=== PATIENT | male | born 1965 | race Caucasian/White ===

== ENCOUNTER 2016-10-15 05:15 | Inpatient (IN) | payer BC ==
[2016-10-14 16:40] LABS: BASOPHILS 1.2 % (0.0-2.0); EOSINOPHILS 2.7 % (0-7); HEMOGLOBIN 10.9 g/dL (13.5-17.5); IMMATURE GRANULOCYTES 0.2 % (0-5); LYMPHOCYTES 33.7 % (15-50); MCH 22.7 pg (26.0-34.0); MCHC 30.3 g/dL (31.0-37.0); MCV 74.8 fL (80.0-100.0); MONOCYTES 7.7 % (2-11); NEUTROPHILS 54.5 % (40-80); PLATELET COUNT 238 10x3/uL (130-400); RBC 4.81 10x6/uL (4.20-6.10)
[2016-10-14 17:06] LABS: APPEARANCE CLEAR (CLEAR); BILIRUBIN NEGATIVE (NEGATIVE); COLOR YELLOW (YELLOW); GLUCOSE NEGATIVE (NEGATIVE); KETONE NEGATIVE (NEGATIVE); LEUKOCYTE ESTERASE NEGATIVE (NEGATIVE); NITRITE NEGATIVE (NEGATIVE); PROTEIN NEGATIVE (NEGATIVE); UROBILINOGEN NORMAL (NORMAL)
[2016-10-14 17:21] LABS: CALC OSMOLALITY 289 mosm/kg (275-300); CALCIUM 8.8 mg/dL (8.5-10.1); CARBON DIOXIDE 30.6 mmol/L (21.0-32.0); CHLORIDE - SERUM 106 mmol/L (98-107); CREATININE - SERUM 0.9 mg/dL (0.6-1.3); POTASSIUM - SERUM 3.8 mmol/L (3.5-5.1); SODIUM 144 mmol/L (136-145); UREA NITROGEN 25 mg/dL (7-18); eGFR NON AFRICAN AMERICAN > 90 mL/min (90-120)
[2016-10-14 17:25] LABS: GLUCOSE 89 mg/dL (74-106)
[2016-10-15] VITALS (18 sets, daily range): BP systolic 128–192; BP diastolic 84–119; Ht 177.8 cm; Wt 95.0 kg
[~2016-10-15] VITALS: Ht 177.8 cm; Wt 95.0 kg
--- NOTE | ~2016-10-15 | CN ---
PATIENT NAME:CALLIE LANGE MEDICAL RECORD: [id number] : 63 LOCATION:D.MS [facility]20 ADMIT DATE: 10/15/16 ACCOUNT: [id number] CONSULTING PHYSICIAN: THOMAS POOLE MD REFERRING PHYSICIAN: LUCI BLUM MD DATE OF CONSULTATION: 10/15/2016 REASON FOR CONSULTATION: Hypertension, postoperative. HISTORY OF PRESENT ILLNESS: The patient is a 50-year-old male, who today underwent a left C5-C6 cervical disc allograft and left shoulder arthroscopy with clavicle and acromion shaving and rotator repair. Apparently during surgery, anesthesia had to change his blood pressure with medications because of elevated blood pressure. The patient states he had taken his Lopressor this morning and did not feel hypertensive. Postoperatively, his blood pressure has been up to 160/108 range with a heart rate of 128. He is somewhat anxious, said that his shoulder is pain free as he has a blocking currently. He said his neck pain was 1/10 preop, it is now 2/10. PAST MEDICAL HISTORY: Had normal cardiac catheterization in December of 2015 with an episode of tachycardia and hypertension at which point he was placed on Lopressor, history of dyslipidemia, history of obesity, exogenous type, history of depression. PAST SURGICAL HISTORY: Gastric sleeve resection in 2009 with a 100-pound weight loss. Recent left cervical disc allograft and left shoulder repair. HOME MEDICATIONS: Nexium 40 mg a day, Klonopin 1 mg p.o. b.i.d., pravastatin 20 mg at h.s., levothyroxine 25 mcg p.o. q.a.m., Lamictal 200 mg once a day, and Lopressor 50 mg p.o. q.a.m. FAMILY HISTORY: Father with history of DVT with some cardiac disease and diabetes. Mother with history of schizophrenia. Sister with bipolar illness. SOCIAL HISTORY: Nonsmoker. Occasional alcohol, socially. REVIEW OF SYSTEMS: GENERAL: No recent fever, fatigue, or weight change. HEENT: No recent visual change, sinus congestion, or sore throat. He does wear glasses to read. CARDIAC: No chest pain, palpitations, had negative catheterization in December of last year. No history of LVH. RESPIRATORY: No severe cough. GASTROINTESTINAL: No nausea, vomiting, change in stools or blood per rectum. He does have intermittent dyspepsia after his gastric sleeve, responds well to Nexium. Denies constipation, change in stools. GENITOURINARY: Denies nocturia or dysuria. MUSCULOSKELETAL: Currently, has no left shoulder pain due to anesthesia, has 2/10 pain in the cervical spine. Has lumbar radiculopathy into his right shoulder at this time as well. INTEGUMENT: No rash or itching. PSYCHIATRIC: Admits to has some anxiety, but depression has been better ____ and he has been sleeping better with medication. ENDOCRINE: Denies polyuria, polydipsia, heat or cold intolerance. CONSULT REPORT [id number] CALLIE LANGE PHYSICAL EXAMINATION: VITAL SIGNS: Heart rate is 98 and regular, blood pressure is 155/108, sat of 96%. He is afebrile, reportedly had a low-grade fever earlier of 99.4 and maximum blood pressure was 173/111, with a heart rate 128. GENERAL: Somewhat anxious, but alert. HEENT: Eyes are clear. NECK: He has postoperative dressing with soft ____ collar. CHEST: Clear. HEART: Tachycardic without murmur. ABDOMEN: Soft. GENITOURINARY: Deferred. EXTREMITIES: No CC&E. Shoulders postoperative wound dressing with anesthesia blocking currently. NEUROLOGICAL: Oriented times 3. Cranial nerves grossly intact. Gait not tested. LABORATORY DATA: Preoperative lab from October 14 shows an H&H of 10.9 and 36.0, MCV of 74.8, platelet count of 238, 0000. Chemistries showed potassium 3.8, BUN and creatinine 25 and 0.9. Urinalysis is clear. Chest x-ray showed no acute cardiopulmonary disease. EKG shows ____ Q-wave unchanged from prior. ASSESSMENT: Essential hypertension with postoperative blood pressure elevation, tachycardia, anxiety, cervical disc disease, left rotator cuff tear and repair, history of depression, history of left ventricular hypertrophy. PLAN: The patient was given an extra dose of metoprolol and his heart rate has improved in the low 90s. He appears somewhat anxious. We will give emma Hernandez for that tonight and monitor closely. TRANSINT:[id number] Voice Confirmation ID: [id number] DOCUMENT ID: [id number] THOMAS POOLE MD CC: [id number] DICTATION DATE: 10/15/162107 STRETCH BOX TENDER: 10/16/16137 ADM IN [facility] [address] [place] [address]
[~2016-10-15 05:15] MED LIST: KLONOPIN1 MG PO; LEVOXYL25 MCG PO; METOPROLOL TART50 MG PO; NEXIUM40 MG PO
--- NOTE | 2016-10-15 09:48 | NUR ---
[id number]: SHOULDER STOPED AT 0839, PT MOVED TO STRETCHER, BED CHANGED AND BOBBY BAG REMOVED PT RETURNED TO OR TABLE. ROOM CLEANED AND SET UP FOR ACF PROCEDURE WITH DR BLUM.
--- NOTE | 2016-10-15 12:00 | NUR ---
TO ROOM 2220 FROM PACU VIA BED.WITHOUT DISTRESS.PAIN 4/10 TO NECK AND SHOULDER.VSS STABLE SEE GRAPHICS. ASSESSMEN TPER FLOW SHEET.DRESSING TO LEFT SHOULDER AND NECK CDI.CALL LIGHT IN REACH.
--- NOTE | 2016-10-15 12:45 | NUR ---
PAIN MEDS ORDERED PER SEP.SCD'S PLACED ON PT.IS AT BEDSIDE IINSTRUCTED USE.
--- NOTE | 2016-10-15 15:00 | NUR ---
PAINMEDS ORDERED.UP TO BATHROOM AND THEN TO CHAIR.MONITOR FOR NEEDS.
--- NOTE | 2016-10-15 15:15 | NUR ---
BP BEFORE PAIN MEDS ELEVATED 166/106.AFTER PAIN MEDS 148/99.
--- NOTE | 2016-10-15 15:15 | NUR ---
PAIN MEDS ORDERED PER MAR
--- NOTE | 2016-10-15 17:35 | NUR ---
REMAINS UP IN CHAIR,WITHOUT DISTRESS.PAINMEDS PER MAR.CALL LIGHT IN REACH
--- NOTE | 2016-10-15 17:40 | OP ---
PATIENT NAME: CALLIE LANGE MEDICAL RECORD: [id number] :63 LOCATION:D.MS [facility]20 ADMISSION DATE:10/15/16 SURGEON: LUCI TURCIOS MD DATE OF OPERATION: 10/15/2016 Orthopedic Surgery Operative note PREOPERATIVE DIAGNOSES: 1. Impingement syndrome of the left shoulder. 2. Acromioclavicular arthritis of the left shoulder. POSTOPERATIVE DIAGNOSES: 1. Impingement syndrome of the left shoulder. 2. Acromioclavicular arthritis of the left shoulder. PROCEDURE: 1. Left shoulder arthroscopy with arthroscopic distal clavicle excision. 2. Arthroscopic subacromial decompression. SURGEON: Luci Turcios MD ANESTHESIA: General. INTRAOPERATIVE COMPLICATIONS: None. SUMMARY OF PATHOLOGIC FINDINGS: Intraarticular aspect of the shoulder was relatively pristine with the exception of a small amount of biceps tendinitis. The patient had a downward sloping acromion with a thickened and attenuated coracoacromial ligament. The superior aspect of the rotator cuff had mild attritional changes, but no full thickness tearing was noted. The AC joint had substantial grade IV chondromalacia with a large osteophytic spur. OPERATIVE SUMMARY IN DETAIL: After obtaining the appropriate preoperative orthopedic surgery consents as well as anesthetic consultation, evaluation and clearance, the patient was brought to the operating room and placed on the operating table in supine position. After adequate general laryngeal mask was administered, the patient was placed in a right lateral decubitus position. All pressure points were well padded to include down leg peroneal pad as well as axillary roll. The patient was held firmly to the operating room table using the vacuum pack suction system. Left upper extremity and shoulder were then prepped and draped in a routine sterile fashion. The arm was held in the Arthrex traction boom at 30 degrees of forward flexion, 30 degrees of abduction with 10 pounds of traction laterally. Arthroscopy was established in the glenohumeral joint from a posterior portal. Anterior portal was established in the anterior safe interval. Diagnostic arthroscopy did reveal the above findings. Attention was then turned to the subacromial space. While on the subacromial space, accessory lateral portal was created through which [place] tissue ablation system was utilized to denude the undersurface of the acromion of all soft tissue elements and released coracoacromial ligament. A 5-0 barrel bur was used to perform acromioplasty at the level of acromioclavicular joint. Having completed this, through a separate arthroscopic anterior portal under direct arthroscopic visualization, 1 cm of distal clavicle was excised. Further bursal tissue was taken down anteriorly, laterally, posteriorly and superficially to complete the decompression. Having completed this, arthroscopy portals were closed in routine interrupted fashion using 4-0 Prolene. Sterile OPERATIVE REPORT [id number] BREVING,CALLIE dressings were applied. The patient was awakened and taken to recovery room in stable condition. All final needle and sponge counts were correct. TRANSINT:[id number] Voice Confirmation ID: [id number] DOCUMENT ID: [id number] KAROLINA PATHAK, LUCI POLO at 1740 CC: [id number] DICTATION DATE: 10/15/1640 MATERIALS INSPECTOR: 10/15/16 1037 ADM IN [facility] [address] [id number]
--- NOTE | 2016-10-15 19:00 | NUR ---
BEDSIDE REPORT RECEIVED AND CARE OF PT ASSUMED. PT LYING IN HIGH ROSALES'S POSITION. LEFT ARM IN IMMOBILIZER. DRESSING ON LEFT SHOULDER AND RIGHT NECK CLEAN AND DRY. SOFT COLLAR ON NECK. IV IN RIGHT FA PATENT WITH D5 1/2 NS INFUSING AT 50 ML / HR. BLOCK IN USE ON LEFT SHOULDER AND BUTOTN WITHIN REACH OF PT. BLOOD PRESSURE 168/109 AT THIS ASSESSMENT.
--- NOTE | 2016-10-15 19:55 | NUR ---
BLOOD PRESSURE REMAINS ELEVATED AT 173/111. CALLED DR POOLE AND RECEIVED ORDERS FOR TOPROL 50 MG PO NOW AND PROTONIX 40 MG IVP Q 24 HOURS FOR REFLUX.
--- NOTE | 2016-10-15 21:09 | NUR ---
DR POOLE HERE ROUNDING ON PT. BLOOD PRESSURE AT THIS CHECK 139/91 AFTER RECEIVING ONE TIME TOPROL 50 MG.
--- NOTE | 2016-10-15 21:35 | NUR ---
SPO2 91% ON ROOM AIR. PLACED O2 @2L VIA NC...O2 SAT UP TO 94%. WILL MONITOR ALYSA.
--- NOTE | 2016-10-15 23:45 | NUR ---
PT RESTING QUIETLY IN SEMI ROSALES'S POSITION WITH EYES CLOSED. SPO2 94% ON 2L O2. FAMILY MEMBER IS AT BEDSIDE.
--- NOTE | 2016-10-16 01:27 | NUR ---
PT REQUESTING NORCO X2 AND ROBAXIN FOR PAIN AT LEVEL 5/10...GIVEN PER PRN ORDER. WILL MONITOR FOR EFFECTIVENES. SIDE RAILS UP X2 FOR SAFETY. SCD'S IN USE ON BLE.
[2016-10-16 06:09] LABS: BASOPHILS 0.2 % (0.0-2.0); EOSINOPHILS 0 % (0-7); HEMATOCRIT 34.7 % (42.0-54.0); HEMOGLOBIN 10.5 g/dL (13.5-17.5); IMMATURE GRANULOCYTES 0.1 % (0-5); LYMPHOCYTES 18.6 % (15-50); MCH 22.6 pg (26.0-34.0); MCHC 30.3 g/dL (31.0-37.0); MCV 74.8 fL (80.0-100.0); NEUTROPHILS 72.1 % (40-80); PLATELET COUNT 221 10x3/uL (130-400); RBC 4.64 10x6/uL (4.20-6.10); RDW 16.2 % (11.5-14.5)
[2016-10-16 06:25] LABS: WBC 8.4 10x3/uL (4.8-10.8)
[2016-10-16 06:26] LABS: % SATURATION 5 % (15-55); IRON 25 ug/dl (35-150); TOTAL IRON BIND CAPACITY 461 ug/dl (260-445); UNSAT IRON BIND CAPACITY 436 ug/dl (150-375)
[2016-10-16 06:46] LABS: CALC OSMOLALITY 284 mosm/kg (275-300); CALCIUM 8.1 mg/dL (8.5-10.1); CARBON DIOXIDE 24.5 mmol/L (21.0-32.0); CHLORIDE - SERUM 107 mmol/L (98-107); FERRITIN 7 ng/mL (3-244); GLUCOSE 116 mg/dL (74-106); POTASSIUM - SERUM 3.7 mmol/L (3.5-5.1); SODIUM 142 mmol/L (136-145); T4 THYROXIN - FREE 1.67 ng/dL (0.76-1.46); THYROID STIMULATING HORMONE 0.28 uIU/mL (0.36-3.74); eGFR NON AFRICAN AMERICAN 84 mL/min (90-120)
[2016-10-16 06:49] LABS: UREA NITROGEN 15 mg/dL (7-18)
[2016-10-16 08:04] VITALS: BP 157/106
[2016-10-16] MEDS ORDERED: ROBAXIN-750750 MG PO (08:17)
[2016-10-16] MEDS ORDERED: HYDROCODONE-APA1 TAB PO (08:19)
--- NOTE | 2016-10-16 08:21 | NUR ---
PT SEEN AND ASSESSED. NO COMPLAINTS AT PRESENT EXCEPT FOR NUMBNESS TO LEFT ARM AND SHOULDER. DRESSING CLEAN DRY AND INTACT. BLOCK IN PLACE FOR PAIN CONTROL. SOFT COLLAR ON-REMOVED TO INSPECT DRESSING TO RIGHT SIDE OF NECK-CLEAN DRY AND INTACT WITH NO DRAINAGE NOTED. NO COMPLAINTS OF DIFFICULTY SWALLOWING OR FEELING A LUMP IN THROAT. CALL LIGHT IN REACH. FAMILY AT BEDSIDE. UP IN CHAIR AT PRESENT
[2016-10-16] MEDS ORDERED: NORVASC2.5 MG PO (08:43)
[2016-10-16] MEDS ORDERED: CATAPRES0.1 MG PO (08:44)
--- NOTE | 2016-10-19 12:27 | OP ---
PATIENT NAME: CALLIE LANGE MEDICAL RECORD: [id number] :63 LOCATION:D.MS [facility]20 ADMISSION DATE:10/15/16 SURGEON: LUCI MULLER MD DATE OF OPERATION: 10/15/2016 DIAGNOSIS: Cervical C5-C6 nerve root compression secondary to cervical spondylosis. PROCEDURE: 1. Anterior cervical discectomy and decompression of canal and nerve root. 2. Application of Mobi-C cervical disc prosthesis. SURGEON: Luci Muller MD WELCOME WAGON HOST/HOSTESS: Eugenio Mcclure MD ESTIMATED BLOOD LOSS: 20 cc. SUMMARY: The patient was taken to the operating room and after an adequate level of general anesthetic, was prepped and draped in the usual aseptic manner in a supine position with the right side of the neck. An incision was made in the skin line after infiltrating with 1:400,000 of epinephrine and 0.5% lidocaine. Dissection was carried out down to the longus colli muscles. Cloward self-retaining retractors was used to maintain exposure. A spinal needle was placed in the C5-C6 interspace. The C-arm image was made to confirm this. Following this, an annulus and anterior longitudinal ligament at C5-C6 were excised with a 15 blade. Disc material was removed piecemeal. A curette was used to further remove disc material from the interspace. A 3 mm Rowena drill bit was then used to drill off osteophytes located posteriorly and in the neural foramen. The posterior longitudinal ligament was maintained and not removed. After a thorough decompression was carried out in the neural foramina, the Mobi-C trial was used to determine that a 17 wide x 15 prosthesis would best fit the patient's interspace using C-arm fluoroscopic images in the operating room to determine this distraction posts were placed in the C5 and C6 vertebral body prior to using the trial and in order to achieve a good decompression. The disc prosthesis was then selected by the company retail sales representative and then inserted into the disc space and the C-arm fluoroscope was observed during this process to be sure that the disk prosthesis was positioned properly in the interspace. When the positioning was determined to be perfect, the distracting posts were compressed on the disc and a little time was allowed for the disc to settle in ____ position in the C5-C6 disc space. Following this, the wound was irrigated with antibiotic solution. Hemostasis was assured and the closure carried out with 3-0 Dexon on the platysma with a subcuticular stitch, a 4-0 Dexon on the skin. The patient tolerated the procedure well, was taken to recovery in stable condition. Sensory evoked responses monitored throughout the procedure were maintained normal. TRANSINT:[id number] Voice Confirmation ID: [id number] DOCUMENT ID: [id number] OPERATIVE REPORT [id number] CALLIE LANGE JAMES MD at 1227 CC: [id number] DICTATION DATE: 10/15/16 1108 TRACK MAN: 10/15/16 1244 DIS IN 10/16/16 [facility] [address] [place] [address]
--- NOTE | 2016-10-19 12:28 | HP ---
PATIENT: CALLIE LANGE MEDICAL RECORD: [id number] ACCOUNT: [id number] LOCATION:D.MS [facility]2220 : 63 ADMISSION DATE: 10/15/16 HISTORY AND PHYSICAL EXAMINATION CHIEF COMPLAINT: Neck pain and shoulder pain. 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 He has known rotator cuff issues along with C5-C6 left neural foraminal narrowing. He is beginning to experience weakness in his left arm along with some tremors. He was seen by Dr. Muller and surgery has been scheduled. PAST MEDICAL HISTORY: Significant for left shoulder impingement and he has also had gastric bypass surgery. He also has reflux. FAMILY HISTORY: His father at the age of 74 from congestive heart failure. His mother's health is unknown. SOCIAL HISTORY: He is . He has a significant other. FAMILY DOCTORS: Dr. Lynn and Dr. Herberth Alvarado. ALLERGIES: None. CURRENT MEDICATIONS: Metoprolol, Nexium, clonazepam and Synthroid. REVIEW OF SYSTEMS: He denies any recent chest pain. He has had significant weight loss secondary to surgery. No chest pain or shortness of breath. PHYSICAL EXAMINATION: GENERAL: This is an alert, oriented male in no acute distress. HEENT: Normocephalic. Pupils are equal, reactive to light. CHEST: Clear bilaterally to auscultation. HEART: S1 and S2. ABDOMEN: Soft, bowel sounds present. EXTREMITIES: He has strength 2/5 of his left tricep and he has decreased sensation in his left thumb. He has no biceps reflex. IMPRESSION: C5-C6 degenerative disc disease with foraminal narrowing. PLAN: C5-C6 LDR disc replacement with ____. He will have rotator cuff surgery per Dr. Herberth Alvarado. The risk and benefits of surgery regarding his artificial disc have been explained in great detail. Risks include bleeding, failure to relieve symptoms, problems with anesthesia and . Time was allowed for questions, questions were answered. The patient wishes to proceed with surgery. TRANSINT:[id number] Voice Confirmation ID: [id number] DOCUMENT ID: [id number] Dictated By: SILVANO BLANCHARD I have interviewed/examined the above patient and agree with these documented findings. HISTORY AND PHYSICAL [id number] CALLIE LANGE JAMES MD at 1228 CC: [id number] DICTATION DATE: 10/14/16 1634 ECOLOGIST TECHNICIAN: 10/14/16 1823 DIS IN 10/16/16 [facility] [address] [id number]
== END 2016-10-16 09:47 | disposition home or self-care (01) | DRG 518 ==
LOC: D.SDCHOLD 05:15 → D.MS 05:15 → D.SDCHOLD 07:30 → D.MS 11:38
PROVIDERS: Family Medicine; Orthopaedic Surgery; ADMIT Neurological Surgery
PROC: 0RNK4ZZ Release Left Shoulder Joint, Percutaneous Endoscopic Approach (ICD-10-PCS; principal; 2016-10-15 07:30)
PROC: 0RR30JZ Replacement of Cervical Vertebral Disc with Synthetic Substitute, Open Approach (ICD-10-PCS; 2016-10-15 07:30)
PROC: 0PBB4ZZ Excision of Left Clavicle, Percutaneous Endoscopic Approach (ICD-10-PCS; 2016-10-15 07:30)
DX: M50.30 Other cervical disc degeneration, unspecified cervical region (principal); I97.3 Postprocedural hypertension; R00.0 Tachycardia, unspecified; M75.42 Impingement syndrome of left shoulder; M19.012 Primary osteoarthritis, left shoulder; M25.78 Osteophyte, vertebrae; M47.812 Spondylosis without myelopathy or radiculopathy, cervical region; F41.9 Anxiety disorder, unspecified; E78.5 Hyperlipidemia, unspecified

== ENCOUNTER → 2016-11-02 10:54 | Outpatient (CLI) | payer BC ==
--- NOTE | ~2016-11-02 | EC ---
PATIENT:CALLIE LANGE DATE OF SERVICE: 11/02/16 SEX: M MEDICAL RECORD: [id number] DATE OF : 63 LOCATION:D.PR AGE OF PATIENT: 50 ADMISSION DATE: 11/02/16 REFERRING PHYSICIAN: INTERPRETING PHYSICIAN: THOMAS MAY M.D. ECHOCARDIOGRAM REPORT ECHO CHARGES 4 ECHO COMPLETE CLINICAL DIAGNOSIS: SOB/EDEMA/HTN/LVH ECHOCARDIOGRAPHIC MEASUREMENTS (adult normal given) AC root (d.<3.7cm) 3.6 LV Septum d (<1.2 cm> 1.7 Valve Excursion 2.5 LV Septum (systole) 2.4 Left Atria (s.<4.0cm> 5.0 LVPW d(<1.2cm) 1.5 RV (d.<2.3cm) 2.9 LVPW (sytole) 2.2 LV diastole(<5.6CM) 4.9 MV E-F(>70mm/sec) LV systole 2.7 LVOT Diameter 2.3 MV exc.(>10mm) Est.ejection fraction (50-75%) Pericardial Effusion N DOPPLER: LVIT A 83.0 E 64.0 LA RVSP 43.3 LVOT 122 AOP1/2T Asc. Ao 147 RVOT 960 RA PA 123 AV Gradient Peak 8.7 AV Mean 3.7 AV Area 3.4 MV Gradient Peak 4.0 MV Mean 1.8 MV Area COMMENTS: Vice President Mission Integration: Lisa CERNAOE Tool Grinding Machine Operator:Laure May TAPE# PACS DATE OF SERVICE: 11/02/2016 Echocardiogram Report INDICATION: Hypertension, edema. DESCRIPTION: Left ventricle demonstrates left ventricular hypertrophy. No regional wall motion abnormalities are noted. Estimated ejection fraction is in the order of 55% to 60%. Mitral valve is structurally normal. There is mild regurgitation noted. Left ECHOCARDIOGRAM REPORT [id number] CALLIE LANGE atrium is mildly dilated. The aortic valve is trileaflet. There is trivial insufficiency seen, but no evidence of stenosis. Right ventricle is mildly dilated. Tricuspid valve is structurally normal. There is trivial regurgitation seen. Right atrium is normal in size. There is no pericardial effusion noted. IMPRESSION: 1. Left ventricular hypertrophy with preserved ejection fraction of 60%. 2. Mild mitral regurgitation. 3. Trivial aortic insufficiency. 4. Trivial tricuspid regurgitation. 5. Right ventricular systolic pressure is elevated at 43 mmHg. TRANSINT:[id number] Voice Confirmation ID: [id number] DOCUMENT ID: [id number] THOMAS MAY M.D. CC: [id number] DICTATION DATE: 11/02/16 1542 ELECTRICAL MAINTENANCE ENGINEER: 11/02/16 2330 [facility] [address] [id number]
[~2016-11-02 10:54] MED LIST changes: +CATAPRES0.1 MG PO; +HYDROCODONE-APA1 TAB PO; +NORVASC2.5 MG PO; +ROBAXIN-750750 MG PO
== END | disposition home or self-care (01) ==
LOC: D.CT 10:54
DX: R06.02 Shortness of breath (principal); R60.9 Edema, unspecified; I10 Essential (primary) hypertension

== ENCOUNTER 2016-11-23 14:00 | Outpatient (CLI) | payer BC | END 2016-11-23 23:59 | disposition home or self-care (01) | LOC: D.RAD 14:00 | DX: M43.22 Fusion of spine, cervical region (principal) ==

== ENCOUNTER → 2017-05-20 08:12 | Outpatient (CLI) | payer BC ==
--- NOTE | 2017-05-22 06:53 | EMG ---
PATIENT:CALLIE LANGE DATE OF SERVICE: 05/20/17 MEDICAL RECORD: [id number] DATE OF : 63 LOCATION: ESTRELLITA ADMISSION DATE: REFERRING PHYSICIAN: LUCI BLUM MD INTERPRETING PHYSICIAN: GILSON MASTERS MD DATE OF SERVICE: 05/20/2017 REFERRED BY: Dr. Blum as an outpatient. DATE OF EXAMINATION: 05/20/2017. ELECTROMYOGRAPHIC DATA: Electromyographic examination is limited to the left upper extremity. In the left upper extremity, left median motor stimulation elicits a compound motor action potential with a distal latency of 2.7 milliseconds, peak amplitude of 6 millivolts, and calculated conduction velocity of 60 meters per second. Left ulnar motor stimulation elicits a compound motor action potential with a distal latency of 2.8 milliseconds, peak amplitude of 8 millivolts, and calculated conduction velocity of 55 meters per second. Left ulnar motor stimulation across the elbow fails to elicit evidence of conduction block at this level. Antidromic left median sensory stimulation elicits a response with a distal latency of 3.1 milliseconds, amplitude of 24 microvolts, and calculated conduction velocity of 60 meters per second. Antidromic left ulnar sensory stimulation elicits a response with a distal latency of 3.4 milliseconds, amplitude of 10 microvolts and calculated conduction velocity of 58 meters per second. The left median F wave has a latency of 29 milliseconds. Needle electrode examination is limited to the left upper extremity as well. Muscles interrogated include the abductor pollicis brevis, first dorsal interosseous, abductor digiti minimi, pronator teres, biceps brachii, triceps and deltoid. There is no abnormality of insertional activity and no abnormal spontaneous activity is seen in all muscles interrogated. Motor unit potential morphology and the pattern of motor unit potential firing and recruitment is normal in all muscles sampled with the exception of 4-5 Hz action tremor observed in most major muscle groups of the left upper extremity. Additional shoulder girdle muscles studied revealed no abnormalities. INTERPRETATION: Electromyographic examination of the left upper extremity is normal. There is no electrical evidence of a cervical radiculopathy or other lesion of the lower motor neuron in the left upper extremity at this time. There is no evidence of active denervation. The patient does have a 4-5 Hz action tremor of the left upper extremity. TRANSINT:[id number] Voice Confirmation ID: [id number] DOCUMENT ID: [id number] GILSON MASTERS MD at 0653 CC: [id number] DICTATION DATE: 05/20/17903 LADIES SUIT OPERATOR: 05/20/1759 DEP CLI 05/20/17 [id number] [place] [address]
== END | disposition home or self-care (01) ==
LOC: D.CN 08:00
DX: M54.2 Cervicalgia (principal); M79.602 Pain in left arm

== ENCOUNTER 2017-12-22 10:00 | Day surgery (SDC) | payer BC ==
[~2017-12-22] VITALS: Ht 177.8 cm; Wt 100.0 kg
--- NOTE | ~2017-12-22 | OP ---
PATIENT NAME: CALLIE LANGE MEDICAL RECORD: [id number] :63 LOCATION:D.OPS ADMISSION DATE: SURGEON: ЕКАТЕРИНА GAMING DO DATE OF OPERATION: 12/22/2017 PROCEDURES: EGD with biopsies and argon plasma coagulation for ablation of Corona's esophagus and esophageal plaques. SCOPE: Olympus video gastroscope. MEDICATIONS: Propofol 1450 mg IV per anesthesia. ESTIMATED BLOOD LOSS: Minimal. COMPLICATIONS: None. FINDINGS: Informed consent was given. The patient was made comfortable with the above medication. After reaching an adequate level of sedation by slow IV push, the patient was placed on his left side. The endoscope was advanced under direct visualization through the mouth to the second portion of the duodenum. The upper and middle thirds of the esophagus appeared normal. In the distal third of the esophagus, there were few reactive-type esophageal plaques, which were benign appearing, as well as reflux esophagitis grade C to D and some esophageal ulcers. Also, at the GE junction, there was mucosa consistent with Corona's esophagus. This was a short segment of Corona's. The endoscope was advanced beyond the GE junction into the stomach and retroflexed to view the cardia. The cardia appeared normal. The stomach had evidence of a prior gastric sleeve with intact distal stomach, but a dilated upper stomach, indicating that the sleeve has loosened proximally. Throughout the stomach, there was some erythema and granularity consistent with possible gastritis. The endoscope was advanced beyond the pylorus into the duodenum. The entire examined duodenum appeared normal. The Erbe straight fire sewer system supervisor was placed through the working channel of the endoscope, and on forced coagulation mode of one liter per minute, the entire area of Corona's was ablated, starting with retroflexion in the cardia and working proximally into the distal esophagus. The visualized esophageal plaques were also coagulated with APC. The endoscope was then withdrawn from the patient. The patient tolerated the procedure well and there were no complications. IMPRESSION: 1. 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 2. LA class C to D reflux esophagitis with some esophageal ulcers. 2. Short segment Corona's esophagus, status post biopsies and argon plasma coagulation. 3. Gastritis characterized by erythema and granularity. PLAN AND RECOMMENDATIONS: 1. Discharge home when recovery parameters are met. 2. Followup biopsy specimen results. 3. Continue current diet and medications including Carafate and PPI therapy. 4. Repeat EGD in 2-3 months for reevaluation and biopsies as indicated. After that time, another treatment of APC can be considered if necessary. TRANSINT:[id number] Voice Confirmation ID: [id number] DOCUMENT ID: [id number] OPERATIVE REPORT [id number] CALLIE LANGE,ЕКАТЕРИНА Garcia DO at 1326 CC: [id number] DICTATION DATE: 12/22/17 1302 APPLICATIONS SPECIALIST: 12/22/17 1355 [facility] 12/22/17 [id number] [place] [address]
[2017-12-22 10:12] VITALS: BP 118/59; Ht 177.8 cm; Wt 100.0 kg
[2017-12-22 11:11] LABS: HEMATOCRIT 43.3 % (42.0-54.0); HEMOGLOBIN 14.9 g/dL (13.5-17.5); MCH 30.3 pg (26.0-34.0); MCHC 34.4 g/dL (31.0-37.0); MCV 88.2 fL (80.0-100.0); RBC 4.91 10x6/uL (4.20-6.10); RDW 13.6 % (11.5-14.5); WBC 4.3 10x3/uL (4.8-10.8)
[2017-12-22] MEDS ORDERED: REMERON30 MG (11:30)
[2017-12-22] MEDS ORDERED: LAMICTAL200 MG (11:31)
[2017-12-22] MEDS ORDERED: CARAFATE1 G (11:31)
== END 2017-12-22 14:00 | disposition home or self-care (01) ==
LOC: D.OPS 10:00
PROVIDERS: Anesthesiology
DX: K22.70 Barrett's esophagus without dysplasia (principal); K21.0 Gastro-esophageal reflux disease with esophagitis; K22.10 Ulcer of esophagus without bleeding; K29.70 Gastritis, unspecified, without bleeding; K29.80 Duodenitis without bleeding; Z01.812 Encounter for preprocedural laboratory examination

== ENCOUNTER → 2018-02-21 14:14 | Outpatient (CLI) | payer BC ==
[2017-12-22 10:12] VITALS: BMI 31.6
[~2018-02-21 14:14] MED LIST changes: +CARAFATE1 G; +LAMICTAL200 MG; +REMERON30 MG
[2018-02-24 03:11] LABS: TESTOSTERONE - FREE 8.9 pg/mL (7.2-24.0); TESTOSTERONE - SERUM 298 ng/dL (264-916)
== END | disposition home or self-care (01) ==
LOC: D.LABREF 14:14
PROVIDERS: Urology
DX: E29.1 Testicular hypofunction (principal)

== ENCOUNTER 2018-03-30 13:53 | Day surgery (SDC) | payer BC ==
[~2018-03-30] VITALS: Ht 177.8 cm; Wt 103.6 kg
--- NOTE | ~2018-03-30 | OP ---
PATIENT NAME: CALLIE LANGE MEDICAL RECORD: [id number] :63 [facility] AD[facility] DATE: SURGEON: ЕКАТЕРИНА GAMING DO DATE OF OPERATION: 03/30/2018 PROCEDURE: EGD with biopsies and argon plasma coagulation for ablation of Corona esophagus and esophageal plaques. SCOPE: Olympus video gastroscope. MEDICATIONS: Propofol 400 mg IV, Versed 2 mg IV, Demerol 50 mg IV, ketamine 150 mg IV all per anesthesia. ESTIMATED BLOOD LOSS: Minimal. COMPLICATIONS: None. FINDINGS: Informed consent was given. The patient was made comfortable with the above medication. After reaching an adequate level of sedation by slow IV push, the patient was placed on his left side. The endoscope was advanced under direct visualization through the mouth to the second portion of the duodenum. The upper and middle thirds of the esophagus appeared normal. In the distal third of the esophagus, there were a few reactive type esophageal plaques, which were benign-appearing, as well as reflux esophagitis grade C. Also, at the GE junction, there was mucosa consistent with short segment Corona esophagus. The endoscope was advanced beyond the GE junction into the stomach and retroflexed view the cardia, which appeared normal. The stomach had evidence of a prior gastric sleeve with an intact distal stomach, with a dilated upper stomach. Throughout the stomach, there was some erythema and granularity consistent with possible gastritis. The endoscope was advanced beyond the pylorus into the duodenum. The entire examined duodenum appeared normal. The ERBE argon plasma coagulation device was set up and the circumferential probe was used to ablate the entire area of Corona's esophagus. There were a few esophageal plaques, which were biopsied and ablated as well with argon plasma coagulation. Settings were forced coagulation mode with 1 liter per minute. After the area was felt to be an ablated successfully, the endoscope was withdrawn from the patient. The patient tolerated the procedure well and there were no complications. IMPRESSION: 1. 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 2. LA class C, reflux esophagitis. 3. Short segment Corona's esophagus, status post biopsies and argon plasma coagulation. 4. Gastritis characterized by erythema and granularity. PLAN AND RECOMMENDATIONS: 1. Discharge home when recovery parameters are met. 2. Follow up biopsy specimen results. 3. Continue current diet and medications including Carafate and PPI therapy. 4. We will repeat endoscopy in 3 to 6 months to reevaluate sites to get biopsies as indicated. If biopsies are benign, we will discuss repeat APC versus another modality for ablation of Corona's esophagus as appearances do not show that the previous APC had much efficacy. OPERATIVE REPORT [id number] CALLIE LANGE TRANSINT:[id number] Voice Confirmation ID: [id number] DOCUMENT ID: [id number] ЕКАТЕРИНА GAMING DO at 1232 CC: [id number] DICTATION DATE: 03/30/18 1040 FIBER HEEL PIECE SHAPER: 03/30/18 1130 PRE [facility] [address] [place] [address]
[2018-03-30 08:23] VITALS: BP 128/85; Ht 177.8 cm; Wt 103.6 kg
[2018-03-30 08:57] LABS: HEMATOCRIT 41.8 % (42.0-54.0); HEMOGLOBIN 14.1 g/dL (13.5-17.5); MCH 28.8 pg (26.0-34.0); MCHC 33.7 g/dL (31.0-37.0); MCV 85.3 fL (80.0-100.0); MEAN PLATELET VOLUME 8.9 fL (7.4-10.4); RBC 4.9 10x6/uL (4.20-6.10); RDW 14.2 % (11.5-14.5); WBC 4.6 10x3/uL (4.8-10.8)
== END 2018-03-30 13:54 | disposition home or self-care (01) ==
LOC: D.OPS 13:53
PROVIDERS: Anesthesiology
DX: K22.70 Barrett's esophagus without dysplasia (principal); K21.0 Gastro-esophageal reflux disease with esophagitis; K29.70 Gastritis, unspecified, without bleeding

== ENCOUNTER → 2018-11-24 15:16 | Outpatient (CLI) | payer BC ==
[2018-03-30 08:23] VITALS: BMI 32.7
[2018-11-24 15:50] LABS: CREATININE - SERUM 1.1 mg/dL (0.6-1.3)
== END | disposition home or self-care (01) ==
LOC: D.LAB 11-23 10:00 → D.CT 11-23 10:30 → D.LAB 11-23 11:00
PROVIDERS: ATTEND Internal Medicine Pulmonary Disease
DX: R04.2 Hemoptysis (principal)

== ENCOUNTER → 2018-12-05 15:29 | Outpatient (CLI) | payer BC ==
[2018-03-30 08:23] VITALS: BMI 32.7
[2018-12-08 08:17] LABS: TESTOSTERONE - FREE 22.4 pg/mL (7.2-24.0); TESTOSTERONE - SERUM 753 ng/dL (264-916)
== END | disposition home or self-care (01) ==
LOC: D.LABREF 15:29
PROVIDERS: ATTEND Urology
DX: E29.1 Testicular hypofunction (principal)

== ENCOUNTER → 2019-01-30 15:47 | Outpatient (CLI) | payer BC ==
[2018-03-30 08:23] VITALS: BMI 32.7
== END | disposition home or self-care (01) ==
LOC: D.MRI 15:47
PROVIDERS: ATTEND Neurological Surgery
DX: M54.12 Radiculopathy, cervical region (principal)

== ENCOUNTER → 2019-02-06 07:09 | Outpatient (CLI) | payer BC ==
[2018-03-30 08:23] VITALS: BMI 32.7
== END | disposition home or self-care (01) ==
LOC: D.MRI 02-02 16:00
PROVIDERS: ATTEND Orthopaedic Surgery
DX: M25.551 Pain in right hip (principal)

== ENCOUNTER → 2019-03-20 14:38 | Outpatient (CLI) | payer BC ==
[2018-03-30 08:23] VITALS: BMI 32.7
== END | disposition home or self-care (01) ==
LOC: D.LABREF 14:38
PROVIDERS: ATTEND Surgery
DX: L02.213 Cutaneous abscess of chest wall (principal)

== ENCOUNTER → 2019-03-29 15:52 | Outpatient (CLI) | payer BC ==
[2018-03-30 08:23] VITALS: BMI 32.7
== END | disposition home or self-care (01) ==
LOC: D.LABREF 15:52
PROVIDERS: ATTEND Surgery
DX: R22.2 Localized swelling, mass and lump, trunk (principal)

== ENCOUNTER → 2019-03-30 12:48 | Outpatient (CLI) | payer BC ==
[2018-03-30 08:23] VITALS: BMI 32.7
== END | disposition home or self-care (01) ==
LOC: D.US 03-23 07:30
PROVIDERS: ATTEND Family Medicine
DX: R82.8 Abnormal findings on cytological and histological examination of urine (principal); R11.10 Vomiting, unspecified

== ENCOUNTER 2019-12-12 07:23 | Outpatient (CLI) | payer BC ==
[2018-03-30 08:23] VITALS: BMI 32.7
== END 2019-12-12 08:05 ==
LOC: D.OPS 07:23
PROVIDERS: ATTEND Surgery
DX: K21.9 Gastro-esophageal reflux disease without esophagitis (principal)

== ENCOUNTER → 2019-12-14 09:28 | Outpatient (CLI) | payer BC ==
[2018-03-30 08:23] VITALS: BMI 32.7
== END | disposition home or self-care (01) ==
LOC: D.RAD 08:00
PROVIDERS: ATTEND Surgery
DX: K21.9 Gastro-esophageal reflux disease without esophagitis (principal)

== ENCOUNTER → 2019-12-15 08:35 | Outpatient (CLI) | payer BC ==
[2018-03-30 08:23] VITALS: BMI 32.7
== END | disposition home or self-care (01) ==
LOC: D.NM 08:00
PROVIDERS: ATTEND Surgery
DX: K21.0 Gastro-esophageal reflux disease with esophagitis (principal)

== ENCOUNTER 2020-01-15 05:39 | Inpatient (IN) | payer BC ==
[2020-01-15] VITALS (18 sets, daily range): BP systolic 94–135; BP diastolic 63–80; Ht 177.8 cm; Wt 118.2 kg
[~2020-01-15] VITALS: Ht 177.8 cm; Wt 118.2 kg
[2020-01-15 06:16] LABS: HEMATOCRIT 42.3 % (42.0-54.0); HEMOGLOBIN 13.2 g/dL (13.5-17.5); MCH 24.7 pg (26.0-34.0); MCHC 31.2 g/dL (31.0-37.0); MCV 79.1 fL (80.0-100.0); MEAN PLATELET VOLUME 8.2 fL (7.4-10.4); RBC 5.35 10x6/uL (4.20-6.10); RDW 15.2 % (11.5-14.5); WBC 4.6 10x3/uL (4.8-10.8)
[2020-01-15 06:25] LABS: ANION GAP 12.8 mmol/L (8-16); CARBON DIOXIDE 27.5 mmol/L (21.0-32.0); CREATININE - SERUM 1.2 mg/dL (0.6-1.3); POTASSIUM - SERUM 4.3 mmol/L (3.5-5.1)
--- NOTE | 2020-01-15 20:00 | NUR ---
DR MEDINA PAGED AND RETURNED CALL. REPORTED NO PAIN MANAGEMENT NOTED ON SEP. RECEIVED ORDER FOR PIN CHASER DIAUDID. ORDER ENTERED TO Animating Touch AND MEDICATION SETUP TO PUMP.
--- NOTE | 2020-01-15 20:32 | NUR ---
PT DOWN TO MRI VIA WHEELCHAIR WITH MRI STAFF AND NURSE.
--- NOTE | 2020-01-15 20:59 | NUR ---
1430-RECIEVED ACCOMPANIED BY RR RN-AWAKE AND ALERT-L PERIPHERAL IV INFUSING LR AT 125-ROOM AIR-NOTED FLUSHED CHEEKS-TEMP 00.2-TRACHEAL AIR ENTRY UNOBSTRUCTED-AUDIBLE BREATH SOUNDS DMITRI-DIMINISHED TO BASES-ABD DISTENDED AND FIRM-NO BOWEL SOUNDS-5 DRG SITES 1500-O2 AT 5L-NOTED SATS 89- WITH INCREASE TO 95-FLUSHED CHEEKS-PT STATED L SHOULDER PAIN NOTED-PT AGREED TO AMBULATION AT [address] MEDINA 1545-ATTEMPTED FSBS IN FOREARMS X3-NOT ABLE OBTAIN SAMPLE-NO FINGERSTICK DONE-PT [id number] TUCKER AT BEDSIDE -REVIEWED WITH PT COMPETE PROCEDURE AND FINDINGS 1700-AMBULATED EASILY TO TOILET-O2 OFF SAT 95-IS DONE WITH >1200-PRODUCTIVE [id number] CALLED NURSE AND STATED-DOES NOT HAVE SENSATION TO L THUMB/FORE FINGER/MIDDLE FINGER-AND PALM-HAS LESS SUPERVISOR INCISING STRENTH COMPARED TO R -AND MODERATE DEXTERITY-NIBP REMOVED FROM L ARM WITH AMBULATION AND PLACED ON G6H-LADOCIBQ DR LESTER WITH ANESTHESIA FOR DIRECTION-STRONGLY RECOMMENDED DR NEGRON NEUROSURGERY BE NOTIFIED-PAST HX OF CERVICAL-SAME DONE -AND NOTIFIED DR MEDINA OF SAME AND IN AGREEMENT-ORDERS RECIVED AND NOTED 1830-DR NEGRON AT BEDSIDE AND SPOKE WITH PT REGARDING PLAN OF CARE AND ADDRESS OF CURRENT
--- NOTE | 2020-01-15 21:33 | NUR ---
PT RETURNED TO ROOM. NO CONCERNS NOTED AT THIS TIME. CALL LIGHT IN REACH. WILL CONTINUE TO OBSERVE.
[2020-01-16 05:45] VITALS: BP 101/37
[2020-01-16 07:00] VITALS: BP 113/67
[2020-01-16 07:08] LABS: ALBUMIN 3.3 g/dL (3.4-5.0); ALKALINE PHOSPHATASE 59 U/L (30-120); ALT (SGPT) 259 U/L (10-68); BILIRUBIN - TOTAL 0.63 mg/dL (0.2-1.3); CALC OSMOLALITY 276 mosm/kg (275-300); CALCIUM 8.2 mg/dL (8.5-10.1); CARBON DIOXIDE 28.5 mmol/L (21.0-32.0); CHLORIDE - SERUM 104 mmol/L (98-107); GLUCOSE 129 mg/dL (74-106); POTASSIUM - SERUM 3.8 mmol/L (3.5-5.1); PROTEIN - SERUM 6.6 g/dL (6.4-8.2); SODIUM 138 mmol/L (136-145); UREA NITROGEN 10 mg/dL (7-18); eGFR NON AFRICAN AMERICAN 82 mL/min (90-120)
[2020-01-16 08:05] LABS: HEMOGLOBIN 11.5 g/dL (13.5-17.5); LYMPHOCYTES 20.4 % (15-50); MCH 25.1 pg (26.0-34.0); MCHC 31.1 g/dL (31.0-37.0); MCV 80.8 fL (80.0-100.0); MEAN PLATELET VOLUME 9.1 fL (7.4-10.4); NEUTROPHILS 67.2 % (40-80); PLATELET COUNT 248 10x3/uL (130-400); RBC 4.58 10x6/uL (4.20-6.10); RDW 15.6 % (11.5-14.5)
[2020-01-16 08:07] LABS: WBC 6.9 10x3/uL (4.8-10.8)
[2020-01-16] MEDS ORDERED: DILAUDID4 MG PO (08:22)
--- NOTE | 2020-01-16 09:03 | MORECARE ---
CASE MANAGEMENT DISCHARGE SUMMARY PATIENT: CALLIE LANGE UNIT: [id number] ADM DATE: 01/15/20 AGE: 54 : 63 SEX: M [facility] AUTHOR: LOKI CONROY PHYSICIAN: REFERRING PHYSICIAN: LUCI MEDINA MD DATE OF SERVICE: 01/16/20 Discharge Plan Patient Name: CALLIE LANGE [facility] [facility] 1965 Planned Disposition: Anticipated Discharge Date: Discharge Date: Expected LOS: 0 Initial Reviewer: [email or web address] Initial Review Date: 01/16/2020 Generated: 01/16/20 10:02 am Patient Name: CALLIE LANGE Page [id number] at 0903 All edits/amendments must be made on the electronic document DICTATION DATE: 01/16/20901 INVESTMENT ASSOCIATE: RADHA 01/16/20901 RPT#: [id number] DC DATE: STATUS: REG [facility] [address] [place] [address] END OF REPORT
--- NOTE | 2020-01-16 10:20 | OP ---
PATIENT NAME: CALLIE LANGE MEDICAL RECORD: [id number] :63 LOCATION:[facility].CV08 ADMISSION DATE: SURGEON: LUCI MEDINA MD DATE OF OPERATION: 01/15/2020 SURGEON: Luci Medina MD PREOPERATIVE DIAGNOSES: 1. History of sleeve gastrectomy. 2. Type 3 paraesophageal hernia. 3. Gastroesophageal reflux disease with esophagitis. 4. Corona esophagus. 5. Biliary dyskinesia. POSTOPERATIVE DIAGNOSES: 1. History of sleeve gastrectomy. 2. Type 3 paraesophageal hernia. 3. Gastroesophageal reflux disease with esophagitis. 4. Corona esophagus. 5. Biliary dyskinesia. PROCEDURES PERFORMED: Laparoscopic cholecystectomy, laparoscopic hiatal hernia repair, esophagogastroduodenoscopy. ANESTHESIA: General. COMPLICATIONS: None. SPECIMENS: Hernia sac. ESTIMATED BLOOD LOSS: 100 mL. OPERATIVE COURSE: After consent was obtained, the patient was taken to the operating room and placed in the supine position on the operating room table. General anesthesia was given. Dr. Vang performed a procedure at this point. Please see his operative note for full details. I believe he performed a tonsillectomy and adenectomy. After the completion of Dr. Vang's procedure, again a second time-out was taken to confirm the correct patient and procedure. The abdomen was prepped and draped in typical sterile fashion. Local anesthetic was injected just above the umbilicus. A stab incision was made with an 11-blade scalpel. Using a 10 mm bladeless optical trocar, the abdomen was entered under direct laparoscopic vision. Adequate pneumoperitoneum was achieved. The abdominal cavity was inspected. No evidence of bowel injury. No evidence of bleeding. Two additional 5 mm trocars were then placed in the left lateral quadrant under direct laparoscopic vision, a 5 mm trocar was placed in the subxiphoid position under direct laparoscopic vision and a 5 mm trocar was placed in the right lateral quadrant. The fundus of the gallbladder was grasped and retracted cephalad. The infundibulum was grasped and retracted laterally. The cystic artery and cystic duct were dissected using electrocautery. The cystic artery and duct were identified. The duct was lateral, artery was medial, liver was in the posterior window. At this time, 3 clips were placed in the proximal cystic duct, 2 clips distal. Two clips were placed in the proximal cystic artery, 1 clip distally. The duct and artery were then transected with laparoscopic Metzenbaum scissors. The remaining portion of gallbladder was dissected off the liver bed using electrocautery. It was placed into an OPERATIVE REPORT [id number] CALLIE LANGE EndoCatch bag and removed through the 10 mm trocar and sent for permanent pathology. At this time, the 5 mm subxiphoid trocar was removed. A Presley liver retractor was placed in the subxiphoid incision. It was placed under the left lobe of liver, exposing the gastroesophageal junction. The patient was placed in the steep reverse Trendelenburg position. There was a large hiatal hernia. The patient had prior history of a sleeve gastrectomy. The gastrohepatic ligament was opened with Harmonic scalpel and dissection continued to the area of the right brett. The right brett was dissected using Harmonic scalpel. The upper two-thirds of the stomach was within the mediastinal cavity. The stomach with gentle retraction was placed onto the stomach. After gentle retraction and Harmonic scalpel dissection, the stomach and esophagus were reduced into the abdominal cavity. The hernia sac was dissected off using the Harmonic scalpel. Our attention was then turned to the left brett. The left brett was dissected using the Harmonic scalpel. This allowed for full circumferential dissection of the hernia sac. A significant amount of mediastinal tissue was dissected out. The hernia was able to be reduced. I could not obtain adequate intraabdominal esophagus length. I was able to get the GE junction. With extensive dissection in the mediastinum, I was able to get the GE junction to the level of the diaphragmatic hiatus. The mediastinum was copiously irrigated and suctioned. At this time, the diaphragm was closed using a 0 Vicryl Stratafix suture. At this time, an EGD was performed. I placed the gastroscope. A bite block was placed. The gastroscope was passed through the bite block in the posterior oropharynx under direct endoscopic vision, advanced through the posterior to the epiglottis into the esophagus. There were no abnormalities noted of the esophagus. The GE junction was identified. The GE junction was directly at the diaphragmatic hiatus. The scope was advanced to the GE junction, base of the stomach, and towards the pylorus. There were no abnormalities identified within in the stomach. No evidence of trauma. The abdomen was then filled with fluid. There was no evidence of leak. The stomach was desufflated and the scope was retracted back. At this time, the EGD was terminated. The scope was removed. After I rescrubbed and returned to the operating table with moderate tension, the GE junction was able to be placed into just below the diaphragm. The Linx sizing device was used. The distal esophagus was markedly dilated. The Linx sizing device was unable to be closed. The dilated esophagus was too large for a Linx device to be placed for a reflux procedure. Due to his prior sleeve gastrectomy, I did not feel safe to proceed with any further options at this point. James was applied to the GE junction. The Presley liver retractor was removed. The abdominal cavity was inspected. No evidence of bowel injury. No evidence of bleeding. The two 10 mm trocar sites were closed with 0 Vicryl suture and a Baldomero-Ning suture passer. The remaining instruments removed. The abdomen was desufflated. Trocars removed. Skin was closed with 4-0 Monocryl, Mastisol, and Steri-Strips. At the end of the case, all needle and instrument counts were correct. No complications occurred. The patient was extubated and transferred to the PACU in stable condition. NTS:[id number] Voice Confirmation ID: [id number] DOCUMENT ID: [id number] OPERATIVE REPORT [id number] CALLIE LANGE,LUCI Bazan MD at 1020 CC: [id number] DICTATION DATE: 01/15/20 1332 BROKER ASSISTANT: 01/15/20 2349 REG [facility] [address] [place] [address]
--- NOTE | 2020-01-16 11:21 | NUR ---
SPOKE WITH JANAK JEFFERSON TO DC HOME, PIV DCD TIP INTACT
--- NOTE | 2020-01-16 11:33 | NUR ---
DC INSTRUCTIONS REVIEWED, DENIES ALL QUESTIONS
--- NOTE | 2020-01-18 01:36 | MORECARE ---
CASE MANAGEMENT DISCHARGE SUMMARY PATIENT: CALLIE LANGE UNIT: [id number] ADM DATE: 01/15/20 AGE: 54 : 63 SEX: M [facility] AUTHOR: LOKI CONROY PHYSICIAN: REFERRING PHYSICIAN: LUCI MEDINA MD DATE OF SERVICE: 01/18/20 Discharge Plan Patient Name: CALLIE LANGE [facility] [facility] 1965 Planned Disposition: Anticipated Discharge Date: Discharge Date: 01/16/2020 Expected LOS: 0 Initial Reviewer: [email or web address] Initial Review Date: 01/16/2020 Generated: 01/18/20 2:35 am Last DP export: 01/16/20 8:03 a Patient Name: CALLIE LANGE Page [id number] at 0136 All edits/amendments must be made on the electronic document DICTATION DATE: 01/18/20134 VACUUM TRUCK DRIVER: RADHA 01/18/20134 RPT#: [id number] DC DATE:01/16/20 STATUS: DIS IN [facility] [address] [place] [address] END OF REPORT
--- NOTE | 2020-01-18 12:41 | OP ---
PATIENT NAME: CALLIE LANGE MEDICAL RECORD: [id number] :63 LOCATION:[facility].CV08 ADMISSION DATE:01/15/20 SURGEON: MILEY VANG MD DATE OF OPERATION: 01/15/2020 PREOPERATIVE DIAGNOSIS: Chronic tonsillitis, uvula edema, turbinate hypertrophy, and nasal obstruction. POSTOPERATIVE DIAGNOSES: Chronic tonsillitis, uvula edema, turbinate hypertrophy, and nasal obstruction. PROCEDURE: Tonsillectomy, uvulectomy, bilateral inferior turbinate reduction, and right internal nasal valve. SURGEON: Miley Vang MD ANESTHESIA: General orotracheal. BLOOD LOSS: Less than 5 cc. SPECIMENS: Right and left tonsil. COMPLICATIONS: None. DISPOSITION: Recovery stable. NASAL PACKING: None. PROCEDURE: The patient was brought to the operating room and placed in supine position, sedated and intubated by anesthesia. The table was turned 90 degrees. Head drape was applied. He was examined using the nasal speculum and headlight both inferior turbinates, anterior nasal septum, floor of the nose and injected with a total of 1.5 cc of 1% lidocaine with 1:100,000 epinephrine and 2 Afrin pledgets were placed on each side of the nose. Using a headlight, a Sun-Lauro mouth gag was carefully inserted and elevated on a towel on her chest. The palate was examined and palpated. It was normal. A red rubber catheter was placed to the right side of the nose and the pharynx was grasped with tonsil clamp to retract the soft palate. Using a mirror, the nasopharynx was examined and the posterior aspect of the inferior turbinates were cauterized. Choanae and eustachian tube orifices were normal bilaterally. The red rubber catheter was let down and removed. The right tonsil was grasped at the superior pole with a straight Allis clamp. Spatula tip cautery on a setting of 8 was used to dissect out the tonsil along its capsule, preserving the anterior and posterior tonsillar pillar. The left tonsil was removed in the same fashion. There was large bilateral tonsilliths. Once that was completed, the uvula was grasped. The mucosa of the nasopharynx was completely preserved. It was divided with a spatula tip cautery on a setting of 10. Multiple simple and horizontal sutures with 3-0 Vicryl were used to close the uvula defect. The pharynx was irrigated and agitated with a Yankauer suction and a suction cautery on a setting of 18 was used to control minimal oozing with the tonsil fossae. Superior tonsil fossae were closed with interrupted 3-0 Vicryl as well. Then, Sun-Lauro mouth gag was let down and removed. The nose was examined using a headlight nasal speculum and both inferior turbinates were medialized with a freer and a Gruenwald was used to take down the inferior portion of the turbinates. Suction cautery on a setting of 30 was used to stop any bleeding and both outfractured OPERATIVE REPORT [id number] CALLIE LANGE with a [place] elevator. Then, a little septal spur inferiorly on the right side was removed with a 15 blade and a caudal and then a crescent-shaped incision was made laterally. Suction cautery was used to stop some bleeding and then this was closed. Some relaxing incisions were made with 4-0 Vicryl interrupted sutures. Nose was carefully examined. Good airway on both sides. He had some septal deviation, but was not interfering with this, really not cause of his nasal obstruction. There was no significant bleeding. The table was turned back 90 degrees. At that point, Dr. Alves proceeded with his portion of the procedure. TRANSINT:[id number] Voice Confirmation ID: [id number] DOCUMENT ID: [id number] MILEY VANG MD at 1241 CC: [id number] DICTATION DATE: 01/15/20 1047 CUSTOMER CARE VOICE CONSULTANT: 01/15/202131 DIS IN 01/16/20 [facility] [address] [place] [address]
--- NOTE | 2020-01-18 12:41 | HP ---
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 He is being admitted for tonsillectomy, uvulectomy, and bilateral inferior turbinate reduction as well as right nasal valve correction. His surgery begun the same time as Dr. Alves. PHYSICAL EXAMINATION: GENERAL: He is healthy appearing. FACE: Normal, symmetric, no lesions. EYES: Sclerae and conjunctivae are normal. EARS: Canals and TMs are normal. NOSE: A little bit asymmetry of the nostril, some mild septal deviation, large inferior turbinates. No masses, polyps, or drainage. ORAL CAVITY AND OROPHARYNX: He has got cryptic caseous tonsillitis and bulbous uvula. NECK: No masses, no adenopathy. CHEST: Clear. CARDIOVASCULAR: Regular rate and rhythm, no murmur. EXTREMITIES: Normal. IMPRESSION: Caseous tonsillitis, uvula edema, nasal obstruction. PLAN: Tonsillectomy, uvulectomy, bilateral inferior turbinate reduction, and correction of right internal nasal valve. TRANSINT:[id number] Voice Confirmation ID: [id number] DOCUMENT ID: [id number] MILEY WHITE MD at 1241 CC: [id number] DICTATION DATE: 01/04/20 1452 DRUM CLEANER: 01/04/20 1604 DIS IN 01/16/20 [facility] [address] [place] [address]
== END 2020-01-16 11:48 | disposition home or self-care (01) | DRG 328 ==
LOC: D.OPS 05:39 → D.PAN 07:30 → EDBD 07:30 → D.PAN 08:00 → D.CVICU 13:20 → D.OPS 13:41 → D.CVICU 01-16 11:48 → D.OPS 01-16 11:48 → D.CVICU 01-17 08:52
PROVIDERS: Anesthesiology; Otolaryngology; ADMIT Surgery; ATTEND Surgery
PROC: 0FT44ZZ Resection of Gallbladder, Percutaneous Endoscopic Approach (ICD-10-PCS; principal; 2020-01-15 08:00)
PROC: 0BQT4ZZ Repair Diaphragm, Percutaneous Endoscopic Approach (ICD-10-PCS; 2020-01-15 08:00)
PROC: 0CTPXZZ Resection of Tonsils, External Approach (ICD-10-PCS; 2020-01-15 08:00)
PROC: 0CTNXZZ Resection of Uvula, External Approach (ICD-10-PCS; 2020-01-15 08:00)
PROC: 09SL4ZZ Reposition Nasal Turbinate, Percutaneous Endoscopic Approach (ICD-10-PCS; 2020-01-15 08:00)
DX: K22.70 Barrett's esophagus without dysplasia (principal); K44.9 Diaphragmatic hernia without obstruction or gangrene; J35.01 Chronic tonsillitis; J34.3 Hypertrophy of nasal turbinates; J34.89 Other specified disorders of nose and nasal sinuses; K82.8 Other specified diseases of gallbladder; K21.0 Gastro-esophageal reflux disease with esophagitis; Z98.84 Bariatric surgery status

== ENCOUNTER 2020-01-22 15:01 | Inpatient (IN) | payer BC ==
[~2020-01-22] VITALS: Ht 177.8 cm; Wt 108.9 kg
[~2020-01-22 15:01] MED LIST changes: +DILAUDID4 MG PO
[2020-01-22 15:33] LABS: BASOPHILS 0.1 % (0-2); EOSINOPHILS 0.3 % (0-7); HEMATOCRIT 39.1 % (42.0-54.0); HEMOGLOBIN 12.2 g/dL (13.5-17.5); IMMATURE GRANULOCYTES 0.1 % (0-5); LYMPHOCYTES 6.6 % (15-50); MCH 25.4 pg (26.0-34.0); MCHC 31.2 g/dL (31.0-37.0); MCV 81.3 fL (80.0-100.0); MEAN PLATELET VOLUME 8.8 fL (7.4-10.4); MONOCYTES 5.8 % (2-11); NEUTROPHILS 87.1 % (40-80); PLATELET COUNT 281 10x3/uL (130-400); RBC 4.81 10x6/uL (4.20-6.10); RDW 16.4 % (11.5-14.5); WBC 7.9 10x3/uL (4.8-10.8)
[2020-01-22 15:42] LABS: APTT 38.9 SECONDS (22.8-39.4); INR 1.06 (0.85-1.17); PROTIME 13.7 SECONDS (11.6-15.0)
[2020-01-22 15:44] LABS: CALC OSMOLALITY 274 mosm/kg (275-300); CARBON DIOXIDE 21.5 mmol/L (21.0-32.0); CHLORIDE - SERUM 99 mmol/L (98-107); CREATININE - SERUM 1.3 mg/dL (0.6-1.3); POTASSIUM - SERUM 3.8 mmol/L (3.5-5.1); SODIUM 134 mmol/L (136-145); UREA NITROGEN 21 mg/dL (7-18); eGFR NON AFRICAN AMERICAN 61 mL/min (90-120)
[2020-01-22 15:48] LABS: GLUCOSE 179 mg/dL (74-106)
[2020-01-22 15:52] LABS: D-DIMER-QUANTITATIVE 3.99 ug/mLFEU (0.20-0.54)
--- NOTE | 2020-01-22 15:53 | NUR ---
CRITICAL LAB: D-DIMER 3.99 DR GARCIA NOTIFIED
[2020-01-22 16:04] LABS: ALBUMIN 3.3 g/dL (3.4-5.0); ALKALINE PHOSPHATASE 99 U/L (30-120); ALT (SGPT) 79 U/L (10-68); BILIRUBIN - TOTAL 0.68 mg/dL (0.2-1.3); C-REACTIVE PROTEIN 8.7 mg/dL (0.0-0.9); CKMB 0.3 U/L (0.0-3.6); CREATINE KINASE 78 UL (21-232); FERRITIN 120 ng/mL (3-244); PRO BNP 74 pg/mL (0-125); PROTEIN - SERUM 7.5 g/dL (6.4-8.2); TROPONIN-I < 0.017 ng/mL (0.000-0.060)
[2020-01-22 16:46] VITALS: BP 100/67
--- NOTE | 2020-01-22 18:55 | NUR ---
PT ARRIVED VIA STRETCHER, WALKED FROM BED TO ROOM. NO COMPLAINTS OR CONCERNS AT THIS TIME. ORDERED SUPPER TRAY. PLACED TELEMETRY. ALERT AND ORIENTED, UP WITHOUT ASSIST IN ROOM. CL IN REACH, SITTING IN RECLINER EATING.
--- NOTE | 2020-01-22 19:16 | NUR ---
PT UP AMBLITORY AROUND ROOM PT DENIES NEEDS AT THIS TIME BED LOW AND LOCKED AND CALL LIGHT IS WITH PT
[2020-01-22 22:08] VITALS: BP 96/63
--- NOTE | 2020-01-23 02:37 | NUR ---
ADMISSION ASSESSMENT PER RN COMPLETED.
[2020-01-23 04:00] VITALS: BP 99/69
[2020-01-23 04:58] VITALS: BP 96/63; BMI 34.5
[2020-01-23 05:52] LABS: BASOPHILS 0 % (0-2); EOSINOPHILS 0 % (0-7); HEMATOCRIT 35.7 % (42.0-54.0); HEMOGLOBIN 10.9 g/dL (13.5-17.5); IMMATURE GRANULOCYTES 0.2 % (0-5); MCH 24.8 pg (26.0-34.0); MCHC 30.5 g/dL (31.0-37.0); MCV 81.3 fL (80.0-100.0); MEAN PLATELET VOLUME 9.1 fL (7.4-10.4); MONOCYTES 2.5 % (2-11); NEUTROPHILS 88.3 % (40-80); PLATELET COUNT 279 10x3/uL (130-400); RBC 4.39 10x6/uL (4.20-6.10); RDW 16.5 % (11.5-14.5); WBC 8.6 10x3/uL (4.8-10.8)
[2020-01-23 06:48] LABS: ALBUMIN 2.8 g/dL (3.4-5.0); ALKALINE PHOSPHATASE 81 U/L (30-120); ALT (SGPT) 63 U/L (10-68); BILIRUBIN - TOTAL 0.27 mg/dL (0.2-1.3); CALC OSMOLALITY 288 mosm/kg (275-300); CALCIUM 8.7 mg/dL (8.5-10.1); CARBON DIOXIDE 25.1 mmol/L (21.0-32.0); CHLORIDE - SERUM 108 mmol/L (98-107); GLUCOSE 195 mg/dL (74-106); PROTEIN - SERUM 6.7 g/dL (6.4-8.2); SODIUM 142 mmol/L (136-145); UREA NITROGEN 16 mg/dL (7-18); eGFR NON AFRICAN AMERICAN 82 mL/min (90-120)
[2020-01-23 06:55] LABS: POTASSIUM - SERUM 4.4 mmol/L (3.5-5.1)
[2020-01-23 07:50] LABS: CHOL - HDL RATIO 6.5 ratio (2.3-4.9); LDL-HDL RATIO 4.8 ratio (1.5-3.5)
--- NOTE | 2020-01-23 07:51 | HP ---
PATIENT: CALLIE LANGE MEDICAL RECORD: [id number] ACCOUNT: [id number] LOCATION:[address] : 63 ADMISSION DATE: 01/22/20 PCP: THOMAS POOLE MD HISTORY AND PHYSICAL EXAMINATION CHIEF COMPLAINT: Shortness of breath, fever, and cough. HISTORY OF PRESENT ILLNESS: This is a 54-year-old white male who is 7-day status post tonsillectomy, hiatal hernia repair, and laparoscopic cholecystectomy by Dr. Alves. He has been home and had been doing well until this morning when he really started having shortness of breath, fever, and his O2 sat was down into the mid 80s. He agreed to come to the hospital where his temperature was 102.9 initially, O2 sat was 88% on room air. In the ED, his white count was normal. Basic metabolic panel was unremarkable. D-dimer elevated at 3.99. CRP elevated at 8.7. Chest x-ray showed left basilar atelectasis or infiltrate. CTA of the chest with PE protocol showed no PE. There was bilateral lower lobe disease with air bronchograms concerning for pneumonia. He is admitted for further evaluation and treatment. PAST MEDICAL HISTORY: Hypertension, osteoarthritis, reflux, peptic ulcer disease. PAST SURGICAL HISTORY: He has had a normal heart catheterization, cervical disc disease, and as mentioned above, he has had laparoscopic cholecystectomy, laparoscopic hiatal hernia repair, and tonsillectomy done just a week ago by Dr. Alves. DRUG ALLERGIES: None known. HOME MEDICATIONS: Klonopin 1 mg at bedtime, Levoxyl 25 mcg once a day, Nexium 40 mg once a day, Lopressor 50 mg once a day, amlodipine 2.5 mg once a day, Remeron 30 mg at bedtime, Carafate 1 g daily, and Lamictal 200 mg daily. FAMILY HISTORY: Parents with hypertension. SOCIAL HISTORY: He is a general surgeon. HABITS: No tobacco. He does drink some alcohol, no illicit drug use. REVIEW OF SYSTEMS: GENERAL: No major weight changes. HEENT: No particular sinus or allergy problems. RESPIRATORY: No history of emphysema. He has used an inhaler in the past for a bad bronchial infection. CARDIAC: No coronary artery disease. GASTROINTESTINAL: He has had reflux and hiatal hernia. GENITOURINARY: No significant problems there. MUSCULOSKELETAL: Some arthritic aches and pains. NEUROLOGIC: No headaches or seizures. PSYCHIATRIC: Has some anxiety. PHYSICAL EXAMINATION: VITAL SIGNS: T-max 102.9, current 101.1 probably lower now; heart rate 99, respirations 24, blood pressure 100/67, and O2 sat on 4 liters is 95%. GENERAL: He is awake and alert, does not appear in acute distress. He is HISTORY AND PHYSICAL [id number] ANISACALLIE sitting up in a chair. SKIN: Warm and dry. HEENT: Grossly unremarkable. NECK: Supple. HEART: Regular rate and rhythm. LUNGS: With crackles down in the bases bilaterally. ABDOMEN: With healing wounds from last week's procedures. EXTREMITIES: No edema. LABORATORY DATA: ABG, pH 7.488, pCO2 of 28, pO2 of 74. Lactic acid level is 1.02 on ABG. CBC with white count of 7900, hemoglobin 12.2, 87% polys. Basic metabolic panel: Sodium 134, potassium 3.8, chloride 99, CO2 21.5, BUN 21, creatinine 1.3, glucose 179, calcium 9.0, ALT is elevated at 79. Other liver functions are normal. INR 1.06. D-dimer 3.99. Troponin less than 0.017. CRP 8.7. ProBNP 74. IMAGING: Chest x-ray with left basilar atelectasis or infiltrate. A CTA of the chest shows no PE. There is bilateral lower lobe disease with air bronchograms concerning for pneumonia, ill-defined airspace disease in the superior segment of the left lower lobe and lingula. ASSESSMENT: 1. Pneumonia. 2. Seven days status post tonsillectomy, laparoscopic cholecystectomy, and laparoscopic hiatal hernia repair. PLAN: He is in isolation until cleared from Covid. Blood cultures have been done. Discussed with Dr. Soto. He is on IV antibiotics, respiratory meds. Other tests or procedures as warranted. TRANSINT:[id number] Voice Confirmation ID: [id number] DOCUMENT ID: [id number] MACARIO TORO MD at 0751 CC: [id number] DICTATION DATE: 01/22/201935 VISUAL MANAGER: 01/22/202013 ADM IN [facility] [address] [place] [address]
[2020-01-23 08:12] VITALS: BP 126/74
[2020-01-23 10:12] VITALS: Ht 177.8 cm; Wt 108.9 kg
--- NOTE | 2020-01-23 10:12 | NUR ---
REPORT RECEIVED. WILL CONTINUE WITH POC. PT CURRENTLY LYING SEMI FOWLERS. CALL LIGHT W/I REACH. PT IS AAO AND UP AD AIRAM. RR EVEN AND UNLABORED ON RA. VSS AND WNL. NS INFUSING @75ML/HR VIA L.FOR PIV. PT WAS SHOWING ST DEPRESSION ON TELEMETRY PERFORMED 12 LEAD EKG AND IT SHOWED MODERATE ST DEPRESSION IN LEAD 3. WILL NOTIFY PRIMARY. WILL CTM.
[2020-01-23 15:23] VITALS: BP 110/68
[2020-01-23 15:25] LABS: GLUCOSE 100 mg/dL (NEGATIVE); NITRITE NEGATIVE (NEGATIVE); SPECIFIC GRAVITY 1.025 (1.005-1.020)
[2020-01-23 15:26] LABS: BILIRUBIN NEGATIVE (NEGATIVE); KETONE MODERATE mg/dL (NEGATIVE); UROBILINOGEN NORMAL (NORMAL)
--- NOTE | 2020-01-23 19:30 | NUR ---
PATIENT AAOX4, SITTING UP IN CHAIR WATCHING TV, EATING AND VISITING WITH FAMILY, DENIES NEEDS AT THIS TIME, 5 LAB SITES C/D/I, DENIES NEEDS AT THIS TIME, WILL CONTINUE TO MONITOR PATIENT, CALL LIGHT WITHIN REACH
[2020-01-23 20:00] VITALS: BP 119/77
--- NOTE | 2020-01-23 21:38 | NUR ---
Patients BS 256, order for 16units, patient refused 16 but requested 12
[2020-01-24] VITALS: BP 103/66
[2020-01-24 04:00] VITALS: BP 114/77
[2020-01-24 06:52] LABS: BASOPHILS 0.2 % (0-2); EOSINOPHILS 0.6 % (0-7); HEMATOCRIT 32.5 % (42.0-54.0); HEMOGLOBIN 10.1 g/dL (13.5-17.5); IMMATURE GRANULOCYTES 0.3 % (0-5); MCH 25.4 pg (26.0-34.0); MCHC 31.1 g/dL (31.0-37.0); MCV 81.9 fL (80.0-100.0); MEAN PLATELET VOLUME 9.1 fL (7.4-10.4); MONOCYTES 7.6 % (2-11); NEUTROPHILS 65.3 % (40-80); PLATELET COUNT 315 10x3/uL (130-400); RBC 3.97 10x6/uL (4.20-6.10)
[2020-01-24 07:02] LABS: WBC 6.3 10x3/uL (4.8-10.8)
[2020-01-24 07:04] LABS: CALCIUM 7.8 mg/dL (8.5-10.1); CARBON DIOXIDE 26.4 mmol/L (21.0-32.0); CHLORIDE - SERUM 109 mmol/L (98-107); SODIUM 144 mmol/L (136-145); UREA NITROGEN 16 mg/dL (7-18); VANCOMYCIN - TROUGH 10.5 ug/mL (10.0-20.0); eGFR NON AFRICAN AMERICAN 82 mL/min (90-120)
[2020-01-24 07:17] LABS: CALC OSMOLALITY 287 mosm/kg (275-300); GLUCOSE 94 mg/dL (74-106); POTASSIUM - SERUM 3.6 mmol/L (3.5-5.1)
--- NOTE | 2020-01-24 07:55 | NUR ---
REPORT RECIEVED. PT SITTING IN BEDSIDE CHAIR. RR EVEN AND UNLABORED ON RA. HE HAS A R FA PIV INFUSING NS@30. HE HAS NO NEEDS AT THIS TIME. WILL CTM
[2020-01-24 08:00] VITALS: BP 108/71
--- NOTE | 2020-01-24 09:53 | MORECARE ---
CASE MANAGEMENT DISCHARGE SUMMARY PATIENT: CALLIE LANGE UNIT: [id number] ADM DATE: 01/22/20 AGE: 54 : 63 SEX: M ROOM/BED: D.2101 AUTHOR: LOKI CONROY PHYSICIAN: REFERRING PHYSICIAN: MACARIO TORO MD DATE OF SERVICE: 01/24/20 Discharge Plan Patient Name: CALLIE [facility]ANGE [facility] [facility] 1965 Planned Disposition: Home Anticipated Discharge Date: Discharge Date: Expected LOS: Initial Reviewer: [email or web address] Initial Review Date: 01/22/2020 Generated: 01/24/20 10:53 am Patient Name: CALLIE LANGE Page 72674 at 0953 All edits/amendments must be made on the electronic document DICTATION DATE: 01/24/2053 COMMERCIAL GLAZIER: RADHA 01/24/20 0953 RPT#: [id number] DC DATE: STATUS: ADM IN [facility] [address] [place] [address] END OF REPORT
--- NOTE | 2020-01-24 10:07 | MORECARE ---
CASE MANAGEMENT DISCHARGE SUMMARY PATIENT: CALLIE LANGE UNIT: [id number] ADM DATE: 01/22/20 AGE: 54 : 63 SEX: M ROOM/BED: D.2101 AUTHOR: LOKI CONROY PHYSICIAN: REFERRING PHYSICIAN: MACARIO TORO MD DATE OF SERVICE: 01/24/20 Discharge Plan Patient Name: CALLIE [facility]ANGE [facility] [facility] 1965 Planned Disposition: Home Anticipated Discharge Date: Discharge Date: Expected LOS: Initial Reviewer: [email or web address] Initial Review Date: 01/22/2020 Generated: 01/24/20 11:06 am Last DP export: 01/24/20 8:53 a Patient Name: CALLIE LANGE Page 13934 at 1007 All edits/amendments must be made on the electronic document DICTATION DATE: 01/24/20 [facility] AQUACULTURE DIRECTOR: RADHA 01/24/20 [facility] RPT#: [id number] DC DATE: STATUS: ADM IN [facility] [address] [place] [address] END OF REPORT
[2020-01-24 11:00] VITALS: BP 106/68
[2020-01-24 15:00] VITALS: BP 130/55
[2020-01-24] MEDS ORDERED: CLINDAMYCIN HC300 MG PO (15:07)
[2020-01-24] MEDS ORDERED: LEVOFLOXACIN500 MG PO (15:08)
--- NOTE | 2020-01-24 15:11 | NUR ---
PER DR LAM, I CALLED [facility] AND SPOKE TO NADINE-PHARMACIST FOR CLINDAMYCIN 600 MG BIS X 5 DAYS, AND LEVAQUIN 500 MG DAILY X 5 DAYS.
--- NOTE | 2020-01-24 17:53 | NUR ---
I have reviewed this patient and I concur with the Shift Assessment completed by the Licensed Practical Nurse today this shift.
[2020-01-24 20:00] VITALS: BP 109/88
[2020-01-25] VITALS: BP 129/85
[2020-01-25 04:00] VITALS: BP 142/87
[2020-01-25] MEDS ORDERED: TRICOR145 MG PO (07:42)
[2020-01-25] MEDS ORDERED: VENTOLIN HFA [SP8 GM INH (07:42)
[2020-01-25] MEDS ORDERED: MUCINEX DM ER1 EAC1 PO (07:43)
[2020-01-25 09:00] VITALS: BP 132/80
--- NOTE | 2020-01-25 09:24 | MORECARE ---
CASE MANAGEMENT DISCHARGE SUMMARY PATIENT: CALLIE LANGE UNIT: [id number] ADM DATE: 01/22/20 AGE: 54 : 63 SEX: M ROOM/BED: D.2101 AUTHOR: RAFIQDOC PHYSICIAN: REFERRING PHYSICIAN: MACARIO TORO MD DATE OF SERVICE: 01/25/20 Discharge Plan Patient Name: CALLIE LANGE Facility: [facility]:[place] : 1965 Planned Disposition: Home Anticipated Discharge Date: Discharge Date: Expected LOS: Initial Reviewer: [email or web address] Initial Review Date: 01/22/2020 Generated: 01/25/20 10:23 am Comments DCP- Discharge Planning Updated by [email or web address]: Lindy Gauthier on 01/25/20 8:[address] Patient Name: CALLIE LANGE Admission Status: ER Accout number: [id number] Admission Date: 01-22-2020 : 1965 Admission Diagnosis:SHORTNESS OF BREATH Attending: MACARIO TORO Current LOS: 3 Anticipated DC Date: Planned Disposition: Home Primary Insurance: [employer] Late entry assessment completed 01/24/20 Discharge Planning Comments: CM met with patient to complete initial dc planning assessment. CM educated patient on the CM role and verbal consent given by patient to complete assessment. CM verified patient's address, phone number, and emergency contact phone numbers. Patient lives at home with family. At discharge patient plans to return home and feels this is a safe discharge. CM discussed availability of home health, rehab services, and medical equipment. Patient states he is feeling better. Pt is currently not wearing oxygen, but if pt exhibits SOB may require testing for home and portable oxygen. JHOAN signed for [employer] if needed. Patient denies other known discharge needs at this time. CM will continue to follow and will assist as needed with dc plans/needs. Needle Board Repairer: Lindy Gauthier DCPIA - Discharge Planning Initial Assessment Updated by [email or web address]: Lindy Gauthier on 01/25/20 9:21 am * Is the patient Alert and Oriented? Yes * How many steps to enter\exit or inside your home? 0/0 * [facility] * Preadmission Environment Home with Family * ADLs Independent * Equipment None * Community resources currently utilized None * Additional services required to return to the preadmission environment? No * Can the patient safely return to the preadmission environment? Yes * Has this patient been hospitalized within the prior 30 days at any hospital? Yes Last DP export: 01/24/20 9:07 a Patient Name: CALLIE LANGE Page 22933 at 0924 All edits/amendments must be made on the electronic document DICTATION DATE: 01/25/20922 LEAD CARPENTER: RADHA 01/25/20922 RPT#: [id number] DC DATE: STATUS: ADM IN [facility] [address] [place] [address] END OF REPORT
--- NOTE | 2020-01-25 10:31 | NUR ---
DC PAPERWORK GONE OVER AND SIGNED WITH PT. ALL QUESTIONS ANSWERED. PIV REMOVED, CATH TIP FULLY INTACT. ALL VALUBLES TAKEN WITH PT.
--- NOTE | 2020-01-25 11:55 | MORECARE ---
CASE MANAGEMENT DISCHARGE SUMMARY PATIENT: CALLIE LANGE UNIT: [id number] ADM DATE: 01/22/20 AGE: 54 : 63 SEX: M ROOM/BED: D.2101 AUTHOR: RAFIQ,DOC PHYSICIAN: REFERRING PHYSICIAN: MACARIO TORO MD DATE OF SERVICE: 01/25/20 Discharge Plan Patient Name: CALLIE LANGE Facility: [facility]:[place] : 1965 Planned Disposition: Home Anticipated Discharge Date: Discharge Date: 01/25/2020 Expected LOS: Initial Reviewer: [email or web address] Initial Review Date: 01/22/2020 Generated: 01/25/20 12:55 pm Comments DCP- Discharge Planning Updated by [email or web address]: Lindy Gauthier on 01/25/20 8:[address] Patient Name: CALLIE LANGE Admission Status: ER Accout number: [id number] Admission Date: 01-22-2020 : 1965 Admission Diagnosis:SHORTNESS OF BREATH Attending: MACARIO TORO Current LOS: 3 Anticipated DC Date: Planned Disposition: Home Primary Insurance: [employer] Late entry assessment completed 01/24/20 Discharge Planning Comments: CM met with patient to complete initial dc planning assessment. CM educated patient on the CM role and verbal consent given by patient to complete assessment. CM verified patient's address, phone number, and emergency contact phone numbers. Patient lives at home with family. At discharge patient plans to return home and feels this is a safe discharge. CM discussed availability of home health, rehab services, and medical equipment. Patient states he is feeling better. Pt is currently not wearing oxygen, but if pt exhibits SOB may require testing for home and portable oxygen. JHOAN signed for [employer] if needed. Patient denies other known discharge needs at this time. CM will continue to follow and will assist as needed with dc plans/needs. Coin Collector: Lindy Gauthier DCPIA - Discharge Planning Initial Assessment Updated by [email or web address]: Lindy Gauthier on 01/25/20 9:21 am * Is the patient Alert and Oriented? Yes * How many steps to enter\exit or inside your home? 0/0 * [facility] * Preadmission Environment Home with Family * ADLs Independent * Equipment None * Community resources currently utilized None * Additional services required to return to the preadmission environment? No * Can the patient safely return to the preadmission environment? Yes * Has this patient been hospitalized within the prior 30 days at any hospital? Yes Last DP export: 01/25/20 8:24 a Patient Name: CALLIE LANGE Page 13375 at 1155 All edits/amendments must be made on the electronic document DICTATION DATE: 01/25/20 1155 CARPET MEASURER: RADHA 01/25/20 1155 RPT#: [id number] DC DATE:01/25/20 STATUS: DIS IN [facility] [address] [place] [address] END OF REPORT
== END 2020-01-25 10:32 | disposition home or self-care (01) | DRG 177 ==
LOC: D.ER 15:01 → D.M2 17:30 → D.SDCHOLD 01-23 07:42 → D.M2 01-23 14:15
PROVIDERS: Family Medicine; ADMIT Family Medicine; ATTEND Family Medicine
DX: J69.0 Pneumonitis due to inhalation of food and vomit (principal); J96.01 Acute respiratory failure with hypoxia; J98.11 Atelectasis; E87.1 Hypo-osmolality and hyponatremia; K21.9 Gastro-esophageal reflux disease without esophagitis; D64.9 Anemia, unspecified; E03.9 Hypothyroidism, unspecified; I10 Essential (primary) hypertension; E78.5 Hyperlipidemia, unspecified

== ENCOUNTER → 2020-02-27 07:11 | Outpatient (CLI) | payer BC ==
[2020-01-23 10:12] VITALS: BMI 34.4
== END | disposition home or self-care (01) ==
LOC: D.RAD 01-31 10:00
PROVIDERS: ATTEND Internal Medicine Pulmonary Disease
DX: J18.9 Pneumonia, unspecified organism (principal); R60.0 Localized edema; R00.0 Tachycardia, unspecified; R05 Cough; R06.02 Shortness of breath

== ENCOUNTER → 2020-02-27 | Emergency (ER) | payer BC ==
[2020-01-23 10:12] VITALS: BMI 34.4
[~2020-02-27] MED LIST changes: +CLINDAMYCIN HC300 MG PO; +LEVOFLOXACIN500 MG PO; +MUCINEX DM ER1 EAC1 PO; +TRICOR145 MG PO; +VENTOLIN HFA [SP8 GM INH
== END | disposition home or self-care (01) ==
LOC: D.ER 11:44
DX: J18.9 Pneumonia, unspecified organism (principal); R60.0 Localized edema; R00.0 Tachycardia, unspecified; R05 Cough; R06.02 Shortness of breath; K21.9 Gastro-esophageal reflux disease without esophagitis

== ENCOUNTER → 2020-03-04 09:15 | Outpatient (CLI) | payer BC ==
[2020-01-23 10:12] VITALS: BMI 34.4
== END | disposition home or self-care (01) ==
LOC: D.ECHO 09:00
PROVIDERS: ATTEND Internal Medicine Cardiovascular Disease
DX: I10 Essential (primary) hypertension (principal)

== ENCOUNTER → 2020-03-05 10:11 | Outpatient (CLI) | payer BC ==
[2020-01-23 10:12] VITALS: BMI 34.4
== END | disposition home or self-care (01) ==
LOC: D.RT 09:30
PROVIDERS: ATTEND Internal Medicine Pulmonary Disease
DX: R06.09 Other forms of dyspnea (principal)

== ENCOUNTER 2020-11-11 11:57 | Day surgery (SDC) | payer BC ==
[~2020-11-11] VITALS: Ht 177.8 cm; Wt 100.5 kg
[2020-11-11 12:37] LABS: BASOPHILS 0.7 % (0-2); EOSINOPHILS 0.3 % (0-7); HEMATOCRIT 45.3 % (42.0-54.0); HEMOGLOBIN 15.1 g/dL (13.5-17.5); LYMPHOCYTE ABS# 1.35 10x3/uL (1.32-3.57); LYMPHOCYTES 22.5 % (15-50); MCH 29.7 pg (26.0-34.0); MCHC 33.3 g/dL (31.0-37.0); MEAN PLATELET VOLUME 9.1 fL (7.4-10.4); MONOCYTES 8.5 % (2-11); NEUTROPHIL ABS# 4.07 10x3/uL (1.78-5.38); PLATELET COUNT 181 10x3/uL (130-400); RBC 5.09 10x6/uL (4.20-6.10); RDW 14.7 % (11.5-14.5)
[2020-11-11 12:39] LABS: ANION GAP 15.9 mmol/L (8-16); CALCIUM 9.4 mg/dL (8.5-10.1); CARBON DIOXIDE 28.8 mmol/L (21.0-32.0); CREATININE - SERUM 1.2 mg/dL (0.6-1.3); POTASSIUM - SERUM 3.7 mmol/L (3.5-5.1)
[2020-11-11] MEDS ORDERED: SYMBICORT 16010.2 GM INH (14:40)
[2020-11-11] MEDS ORDERED: WELLBUTRIN XL150 M1 PO (14:40)
[2020-11-11 14:44] VITALS: Ht 177.8 cm; Wt 100.5 kg
--- NOTE | 2020-11-11 17:10 | NUR ---
DR GAMING AT BEDSIDE 1730 PIV DC'D WITH CATHETER INTACT. DC TEACHING COMPLETE. 1735 DR GAMING NOTIFIED OF PT'S DIASTOLIC BLOOD PRESSURE READING. PER DR GAMING, PT CAN TAKE GI COCKTAIL HOME INSTEAD OF TAKING IT WHILE HERE. 1740 PT GETTING DRESSED WITH FAMILY MEMBER'S HELP
--- NOTE | 2020-11-11 18:09 | NUR ---
DC'D PT VIA WC ACCOMPANIED BY THIS NURSE TO POV WITH SIGNIFICANT OTHER DRIVING. PT HAS ALL BELONGINGS AND DC PACKET.
--- NOTE | 2020-11-12 15:22 | OP ---
PATIENT NAME: CALLIE LANGE MEDICAL RECORD: [id number] :63 LOCATION:[facility] ADMISSION DATE: SURGEON: ЕКАТЕРИНА GAMING DO DATE OF OPERATION: 11/11/2020 PROCEDURE: EGD with biopsies and screening colonoscopy. INDICATIONS FOR PROCEDURE: History of Corona's esophagus, nausea and vomiting, diarrhea. SCOPE: Olympus video gastroscope and Olympus video pediatric colonoscope. MEDICATIONS: Propofol 800 mg IV, ketamine 500 mg IV, Versed 2 mg IV per anesthesia. COMPLICATIONS: None. FINDINGS: Informed consent was given. The patient was made comfortable with the above medication. After reaching an adequate level of sedation by slow IV push, the patient was placed on his left side. The gastroscope was advanced under direct visualization through the mouth down to the second portion of the duodenum. The upper esophagus appeared normal. Down into the middle and distal esophagus, there was significant inflammation. Within this inflammation, there was nodularity, friability, congestion, and some reactive appearing plaques. Multiple biopsies were taken at multiple levels. This included biopsies with cold forceps at 39 cm, 37 cm, 35 cm, 33 cm, and 31 cm. There was some slightly pronounced nodular tissue at 37 cm, which was biopsied separately. The endoscope was advanced beyond the proper GE junction, which sits above the diaphragm hiatus. Once the proper GE junction is passed with the endoscope, you are in a partial gastric pouch. The mucosa appeared slightly congested and erythematous consistent with mild chronic gastritis changes. This pouch is approximately 5 cm before another surgical intervention is encountered in the form of a hiatal hernia repair. This is not a fundoplication. This site was passed with the endoscope into the body of the stomach as well as the distal stomach where there was some more inflammation. This was characterized by congestion and erythema and some friability. Cold forceps biopsies were taken from the antrum to submit for histopathology and to rule out the presence of H. pylori. The endoscope was then advanced beyond the pylorus into the duodenum, which appeared normal to the second portion. The endoscope was withdrawn back into the stomach and retroflexed to view the hiatal hernia repair. This appeared normal. The endoscope was advanced back up into the proximal gastric pouch, but retroflexion could not be performed due to the small nature of the pouch. The endoscope was withdrawn from the patient. The endoscopes were changed to the pediatric colonoscope and the patient was turned around. A digital rectal examination was performed and was normal. The endoscope was then advanced under direct visualization through the rectum to the cecum. The endoscope was slowly withdrawn and the mucosa was carefully examined. The prep quality was poor. A significant amount of time was used to wash out the colon to the best of my ability for visualization of the rogers. There were no protruding sessile polyps, but I cannot comment on the possibility of some flat polyps that could be missed due to the prep. The mucosa throughout the colon appeared normal. Retroflexion was performed in the rectum with visualization of a normal appearing rectal wall. There were a few scattered diverticula located in sigmoid colon without evidence of diverticulitis. The endoscope was withdrawn from the patient. The patient tolerated the procedure well and there OPERATIVE REPORT [id number] BREVING,CALLIE were no complications. IMPRESSIONS: 1. Severe esophagitis involving the majority of the esophagus. There were reactive nodules and plaques located from approximately 31 cm down to 39 cm with multiple biopsies taken as described in the report. There was also a prominent nodule located approximately 37 cm that was biopsied as well. 2. Mild chronic gastritis changes with biopsies taken from the antrum. 3. Evidence of prior surgeries including a sleeve gastrectomy and a hiatal hernia repair. Of note, the patient does have stomach above the diaphragmatic hiatus. 4. Diverticulosis. 5. Normal colon mucosa with a poor prep encountered during the colonoscopy. There were no protruding sessile polyps, but this is as much that can be commented on based on the prep quality. PLAN AND RECOMMENDATIONS : 1. Discharge home when recovery parameters are met. 2. Follow up biopsy specimen results. 3. GERD precautions and diet. 4. Continue current medications including PPI daily and Carafate as needed. 5. Repeat colonoscopy within 1-2 years due to the poor prep encountered today. 6. The patient will need another EGD in at least 2 years, if not sooner, based on his history of Corona's esophagus. TRANSINT:[id number] Voice Confirmation ID: [id number] DOCUMENT ID: [id number] ЕКАТЕРИНА GAMING DO at 1522 CC: [id number] DICTATION DATE: 11/11/20 165 STAFF MECHANICAL ENGINEER: 11/12/20 0042 [facility] 11/11/20 [facility] [address] [id number]
== END 2020-11-11 18:09 | disposition home or self-care (01) ==
LOC: D.OPS 11:57
PROVIDERS: Anesthesiology; ATTEND Internal Medicine Gastroenterology
DX: K22.70 Barrett's esophagus without dysplasia (principal); R11.2 Nausea with vomiting, unspecified; R19.7 Diarrhea, unspecified; K20.80 Other esophagitis without bleeding; K29.50 Unspecified chronic gastritis without bleeding; K57.30 Diverticulosis of large intestine without perforation or abscess without bleeding

== ENCOUNTER → 2020-12-17 15:30 | Outpatient (CLI) | payer BC ==
[2020-11-11 14:44] VITALS: BMI 31.7
[~2020-12-17 15:30] MED LIST changes: +SYMBICORT 16010.2 GM INH; +WELLBUTRIN XL150 M1 PO
== END | disposition home or self-care (01) ==
LOC: D.MRI 15:30
PROVIDERS: ATTEND Neurological Surgery
DX: M54.12 Radiculopathy, cervical region (principal)

== ENCOUNTER → 2020-12-25 14:16 | Outpatient (CLI) | payer BC ==
[2020-11-11 14:44] VITALS: BMI 31.7
== END | disposition home or self-care (01) ==
LOC: D.NM 11-22 11:30
PROVIDERS: ATTEND Nurse Practitioner
DX: R11.2 Nausea with vomiting, unspecified (principal)